=== PATIENT | female | born 1980 | race Two or more races ===

== ENCOUNTER 2022-09-24 15:41 | Outpatient (CLI) | payer OTHER ==
[2022-09-25] MEDS ORDERED: HYDRODIURIL12.5 MG PO (09:42)
[2022-09-25] MEDS ORDERED: COZAAR100 MG PO (09:42)
[2022-09-25] MEDS ORDERED: LEXAPRO5 MG PO (09:43)
[2022-09-25] MEDS ORDERED: ATORVASTATIN CA10 MG PO (09:43)
[2022-09-25] MEDS ORDERED: FIORICET (09:44)
== END 2022-09-24 15:45 | disposition home or self-care (01) ==
LOC: LAB 15:41
DX: U07.1 COVID-19 (principal); B34.1 Enterovirus infection, unspecified

== ENCOUNTER → 2022-09-25 | Outpatient (CLI) | payer OTHER ==
[~2022-09-25] MED LIST: ATORVASTATIN CA10 MG PO; COZAAR100 MG PO; FIORICET; HYDRODIURIL12.5 MG PO; LEXAPRO5 MG PO
== END | disposition home or self-care (01) ==
LOC: NUCLEAR 07:00
PROVIDERS: ATTEND Internal Medicine
DX: I11.9 Hypertensive heart disease without heart failure (principal); I25.9 Chronic ischemic heart disease, unspecified; E78.2 Mixed hyperlipidemia

== ENCOUNTER 2022-11-19 09:17 | Inpatient (IN) | payer OTHER ==
[~2022-11-19] VITALS: Ht 152.4 cm; Wt 61.7 kg
[2022-11-22] MEDS ORDERED: BUSPIRONE HCL15 MG (08:09)
[2022-11-22] MEDS ORDERED: ESCITALOPRAM OX10 MG (08:09)
[2022-11-22] MEDS ORDERED: BUTALB-ACETAMI1 EAC2 (08:09)
[2022-11-22] MEDS ORDERED: PROPRANOLOL HCL20 MG (08:09)
[2022-11-23] MEDS ORDERED: KETO10TA2 PO (08:45)
[2022-11-23] MEDS ORDERED: COLACE100 MG PO (08:45)
[2022-11-23] MEDS ORDERED: TRAM1TAB98 PO (08:50)
== END 2022-11-23 11:36 | disposition home or self-care (01) | DRG 743 ==
LOC: O/R 11-22 05:58 → OB/GYN 11-22 05:58
PROVIDERS: ADMIT Obstetrics & Gynecology; ATTEND Obstetrics & Gynecology
PROC: 0DNW4ZZ Release Peritoneum, Percutaneous Endoscopic Approach (ICD-10-PCS; 2022-11-22)
PROC: 0USG4ZZ Reposition Vagina, Percutaneous Endoscopic Approach (ICD-10-PCS; 2022-11-22)
PROC: 0UT94ZZ Resection of Uterus, Percutaneous Endoscopic Approach (ICD-10-PCS; principal; 2022-11-22 09:45)
DX: D25.1 Intramural leiomyoma of uterus (principal); N80.03 Adenomyosis of the uterus; Z20.822 Contact with and (suspected) exposure to COVID-19; N72 Inflammatory disease of cervix uteri